=== PATIENT | female | born 1985 | race African-American/Black ===

== ENCOUNTER 2016-07-18 09:55 | Emergency (ER) | payer OTHER, SELFPAY ==
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
== END 2016-07-18 11:57 | disposition home or self-care (01) ==
LOC: MADERS 09:55
DX: S16.1XXA Strain of muscle, fascia and tendon at neck level, initial encounter (principal); V49.9XXA Car occupant (driver) (passenger) injured in unspecified traffic accident, initial encounter
CPT/HCPCS: 72040

== ENCOUNTER 2016-10-05 19:05 | Emergency (ER) | payer SELFPAY ==
[2016-10-05 20:28] LABS: BHCG - Serum Negative (NEGATIVE); Hemoglobin 10.5 g/dL (12.0-16.0); Mean Corpuscular HGB CONC 30.7 g/dL (32.0-36.0); Mean Corpuscular Hemoglobin 25.4 pg (27.0-31.0); Mean Corpuscular Volume 82.8 fL (81.0-99.0); Mean Platelet Volume 9.2 fL (7.4-10.4); Platelet Count 326 thou/uL (130-400); Pregs Control Background? CLEAR/WHITE (CLR/WHITE); Pregs Control Bar Appear? YES (CONTROL BAR); RBC Distribution Width 15.8 % (11.5-14.5); Red Blood Cell (RBC) Count 4.13 mill/uL (4.20-5.40); White Blood Cell (WBC) Count 6.9 thou/uL (4.8-10.8)
[2016-10-05 20:29] LABS: #Basophils 0.2 thou/uL (0.0-0.2); #Eosinphils 0.4 thou/uL (0.0-0.7); #Lymphocytes 2.4 thou/uL (1.20-3.40); #Monocytes 0.6 thou/uL (0.11-0.59); #Neutrophils 3.4 thou/uL (1.40-6.50); %Basophils 2.4 % (0.0-1.0); %Eosinophils 5.5 % (0.0-10.0); %Lymphocytes 34.4 % (21.0-51.0); %Monocytes 8.1 % (0.0-10.0)
[2016-10-05 20:30] LABS: Anion Gap 15 mmol/L (10-20); BUN (Urea Nitrogen) 10 mg/dL (7.0-18.7); Calc. Creatinine Clearance 0 mL/min (70-130); Calcium 8.7 mg/dL (7.8-10.44); Carbon Dioxide 19 mmol/L (22-29); Chloride 109 mmol/L (98-107); Estimated GFR-MDRD Greater than 90; Glucose 123 mg/dL (70-105); Potassium 3.4 mmol/L (3.5-5.1); Sodium 140 mmol/L (136-145)
== END 2016-10-05 20:45 | disposition home or self-care (01) ==
LOC: MADERS 19:05
DX: N94.6 Dysmenorrhea, unspecified (principal)
CPT/HCPCS: 36415; 80048; 84703; 85025; 99284

== ENCOUNTER 2017-09-14 16:03 | Emergency (ER) | payer OTHER, SELFPAY ==
[2017-09-14 16:54] LABS: Pregnancy Test - Urine (BHCG) Negative (Negative)
[2017-09-14 16:55] LABS: Pregu Control Background? CLEAR/WHITE (CLR/WHITE); Pregu Control Bar Appear? YES (CONTROL BAR)
[2017-09-14 17:05] LABS: Bilirubin Negative (Negative); Blood, Urine Large (Negative); Clarity Cloudy (Clear); Glucose, Urine (Dipstick) Negative (Negative); Leukocyte Negative (Negative); Nitrite Negative (Negative); Protein, Urine (Dipstick) 30 mg/dL (Neg-Trace)
[2017-09-14 17:07] LABS: #Basophils 0.1 thou/uL (0.0-0.2); #Eosinphils 0.5 thou/uL (0.0-0.7); #Lymphocytes 2.2 thou/uL (1.20-3.40); #Monocytes 0.4 thou/uL (0.11-0.59); #Neutrophils 2.5 thou/uL (1.40-6.50); %Basophils 2.3 % (0.0-1.0); %Lymphocytes 39.2 % (21.0-51.0); %Monocytes 6.8 % (0.0-10.0); %Neutrophils 43.7 % (42.0-75.0); Hemoglobin 13.3 g/dL (12.0-16.0); Mean Corpuscular HGB CONC 32.4 g/dL (32.0-36.0); Mean Corpuscular Volume 89.4 fl (81.0-99.0); Mean Platelet Volume 8.7 fL (7.4-10.4); Platelet Count 268 thou/uL (130-400); RBC Distribution Width 11.5 % (11.5-14.5); White Blood Cell (WBC) Count 5.7 thou/uL (4.8-10.8)
[2017-09-14 17:09] LABS: Bacteria/HPF 2+ HPF (None Seen); WBC/HPF 0-3 HPF (0-3)
[2017-09-14 17:10] LABS: Crystals/HPF 2+ AMORPH PHOS HPF (Negative)
[2017-09-14 17:22] LABS: Anion Gap 13 mmol/L (10-20); BUN (Urea Nitrogen) 13 mg/dL (7.0-18.7); Calc. Creatinine Clearance 0 mL/min (70-130); Calcium 9.4 mg/dL (7.8-10.44); Carbon Dioxide 23 mmol/L (22-29); Chloride 109 mmol/L (98-107); Estimated GFR-MDRD Greater than 90; Glucose 99 mg/dL (70-105); Potassium 3.7 mmol/L (3.5-5.1); Sodium 141 mmol/L (136-145)
[2017-09-14] MEDS ORDERED: Sulfameth/Trimethoprim DS 800-160mg TAB ONE (17:26)
== END 2017-09-14 17:40 | disposition home or self-care (01) ==
LOC: MADERS 16:03
DX: N93.9 Abnormal uterine and vaginal bleeding, unspecified (principal); N39.0 Urinary tract infection, site not specified
CPT/HCPCS: 36415; 80048; 81003; 81015; 81025; 85025; 99284

== ENCOUNTER 2017-09-29 22:41 | Emergency (ER) | payer OTHER | END 2017-09-30 01:34 | disposition left against medical advice (07) | LOC: MADERS 22:41 | DX: Z53.21 Procedure and treatment not carried out due to patient leaving prior to being seen by health care provider (principal) ==

== ENCOUNTER 2017-11-20 19:56 | Emergency (ER) | payer OTHER ==
[2017-11-20 20:14] LABS: Bilirubin Negative (Negative); Blood, Urine Trace (Negative); Clarity Clear (Clear); Glucose, Urine (Dipstick) Negative (Negative); Leukocyte Negative (Negative); Nitrite Negative (Negative); Protein, Urine (Dipstick) Negative (Neg-Trace); Urobilinogen 0.2 mg/dL (0.2-1.0)
[2017-11-20 20:16] LABS: Specific Gravity, Urine 1.024 (1.002-1.036)
[2017-11-20 20:17] LABS: Bacteria/HPF Rare-Few HPF (None Seen)
[2017-11-20 20:18] LABS: Pregnancy Test - Urine (BHCG) Negative (Negative); Pregu Control Background? CLEAR/WHITE (CLR/WHITE); Pregu Control Bar Appear? YES (CONTROL BAR); Specific Gravity 1.024 (1.002-1.036)
[2017-11-20] MEDS ORDERED: traMADol HCl 50 MG TAB ONE (20:24)
[2017-11-20] MEDS ORDERED: predniSONE 20 MG TAB ONE (20:25)
== END 2017-11-20 20:32 | disposition home or self-care (01) ==
LOC: MADERS 19:56
DX: M54.5 Low back pain (principal)
CPT/HCPCS: 81003; 81015; 81025; 99283; J7506

== ENCOUNTER 2017-12-04 07:59 | Emergency (ER) | payer OTHER ==
[2017-12-04 08:20] LABS: Bilirubin Negative (Negative); Blood, Urine Large (Negative); Clarity Slightly Cloudy (Clear); Glucose, Urine (Dipstick) Negative (Negative); Leukocyte Large (Negative); Nitrite Positive (Negative); Protein, Urine (Dipstick) 100 mg/dL (Neg-Trace)
[2017-12-04 08:23] LABS: Bacteria/HPF 1+ HPF (None Seen)
[2017-12-04 08:26] LABS: Pregnancy Test - Urine (BHCG) Negative (Negative); Pregu Control Background? CLEAR/WHITE (CLR/WHITE); Pregu Control Bar Appear? YES (CONTROL BAR)
[2017-12-04] MEDS ORDERED: Acetaminophen 500 MG TAB ONE (08:27)
== END 2017-12-04 08:50 | disposition home or self-care (01) ==
LOC: MADERS 07:59
DX: N10 Acute pyelonephritis (principal)
CPT/HCPCS: 81003; 81015; 81025; 87077; 87086; 87186; 99283

== ENCOUNTER 2017-12-23 12:34 | Outpatient (CLI) | payer OTHER ==
--- NOTE | 2017-12-23 14:34 | RAD ---
THREE VIEWS LUMBAR SPINE: 12/23/17 HISTORY: Mid back pain. FINDINGS: There are five nonribbearing lumbar type vertebral bodies. The vertebral body heights and interverteb ral disc spaces are within normal limits. Phleboliths overlie the pelvis. IMPRESSION: No fracture or subluxation involving the lumbar spine. POS: [facility]
--- NOTE | 2017-12-23 14:38 | RAD ---
TWO VIEWS OF THE THORACIC SPINE: 12/23/17 HISTORY: Mid back pain. FINDINGS: There is mild right convex curvature of the thoracic spine. Vertebral body heights and intervertebral disc spaces are within normal limits. The upper thoracic spine is partially obscured on the lateral projection due to overlying structures. There is otherwise no fracture or subluxation involving the t horacic spine. IMPRESSION: Mild right convex curvature of the thoracic spine. There is otherwise no definite acute osseous abnor mality visualized. POS: [facility]
== END 2017-12-23 12:35 | disposition home or self-care (01) ==
LOC: MADRAD 12:34
PROVIDERS: ATTEND Family Medicine
DX: M54.6 Pain in thoracic spine (principal)
CPT/HCPCS: 72070; 72100

== ENCOUNTER 2018-01-21 09:50 | Emergency (ER) | payer OTHER ==
[2018-01-21 11:11] LABS: Bilirubin Negative (Negative); Blood, Urine Negative (Negative); Clarity Cloudy (Clear); Glucose, Urine (Dipstick) Negative (Negative); Leukocyte Negative (Negative); Nitrite Negative (Negative); Protein, Urine (Dipstick) Negative (Neg-Trace); pH, Urine 7.5 (5.0-9.0)
[2018-01-21 11:16] LABS: Pregnancy Test - Urine (BHCG) Negative (Negative); Pregu Control Background? CLEAR/WHITE (CLR/WHITE); Pregu Control Bar Appear? YES (CONTROL BAR)
[2018-01-21 11:59] LABS: #Basophils 0.1 thou/uL (0.0-0.2); #Eosinphils 0.4 thou/uL (0.0-0.7); #Lymphocytes 2.2 thou/uL (1.20-3.40); #Monocytes 0.6 thou/uL (0.11-0.59); #Neutrophils 3.2 thou/uL (1.40-6.50); %Basophils 1.8 % (0.0-1.0); %Eosinophils 5.6 % (0.0-10.0); %Lymphocytes 33.9 % (21.0-51.0); %Monocytes 8.9 % (0.0-10.0); %Neutrophils 49.8 % (42.0-75.0); Hemoglobin 13.5 g/dL (12.0-16.0); Mean Corpuscular HGB CONC 32.7 g/dL (32.0-36.0); Mean Corpuscular Hemoglobin 29.9 pg (27.0-31.0); Mean Corpuscular Volume 91.6 fL (78.0-98.0); Mean Platelet Volume 9.1 fL (7.4-10.4); Platelet Count 283 thou/uL (130-400); RBC Distribution Width 11.5 % (11.5-14.5); White Blood Cell (WBC) Count 6.4 thou/uL (4.8-10.8)
[2018-01-21 12:13] LABS: ALT (SGPT) 7 U/L (8-55); AST (SGOT) 11 U/L (5-34); Albumin 4.3 g/dL (3.5-5.0); Alkaline Phosphatase 69 U/L (40-150); Anion Gap 11 mmol/L (10-20); BUN (Urea Nitrogen) 8 mg/dL (7.0-18.7); Bilirubin, Total 0.6 mg/dL (0.2-1.2); Calc. Creatinine Clearance 0 mL/min (70-130); Calcium 9.1 mg/dL (7.8-10.44); Carbon Dioxide 25 mmol/L (22-29); Chloride 106 mmol/L (98-107); Estimated GFR-MDRD Greater than 90; Globulin 3.5 g/dL (2.4-3.5); Glucose 94 mg/dL (70-105); Lipase 18 U/L (8-78); Potassium 3.9 mmol/L (3.5-5.1); Protein, Total 7.8 g/dL (6.0-8.3); Sodium 138 mmol/L (136-145)
[2018-01-21] MEDS ORDERED: cefTRIAXone\\ROCEPHIN 250 MG VIAL ONE (12:51)
[2018-01-24 19:24] LABS: Chlamydia by PCR Not Detected (NotDetected); GC by PCR Not Detected (NotDetected)
== END 2018-01-21 13:15 | disposition home or self-care (01) ==
LOC: MADERS 09:50
DX: N73.9 Female pelvic inflammatory disease, unspecified (principal)
CPT/HCPCS: 36415; 80053; 81003; 81025; 83690; 85025; 87480; 87491; 87510; 87591; 87660; 96372; J0696; J2001

== ENCOUNTER 2018-06-21 19:26 | Emergency (ER) | payer OTHER | END 2018-06-21 19:45 | disposition home or self-care (01) | LOC: MADERS 19:26 | DX: J20.9 Acute bronchitis, unspecified (principal) | CPT/HCPCS: 99281 ==

== ENCOUNTER 2018-07-02 09:16 | Emergency (ER) | payer MEDICAID, OTHER | END 2018-07-02 10:20 | disposition home or self-care (01) | LOC: MADERS 09:16 | DX: J02.9 Acute pharyngitis, unspecified (principal); F17.210 Nicotine dependence, cigarettes, uncomplicated | CPT/HCPCS: 99281 ==

== ENCOUNTER 2018-08-04 17:57 | Emergency (ER) | payer MEDICAID, OTHER ==
[2018-08-04] MEDS ORDERED: Ibuprofen 800 MG TAB ONE (18:13)
[2018-08-04 18:22] LABS: Pregnancy Test - Urine (BHCG) Negative (Negative); Pregu Control Background? CLEAR/WHITE (CLR/WHITE); Pregu Control Bar Appear? YES (CONTROL BAR); Specific Gravity 1.022 (1.002-1.036)
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
== END 2018-08-04 19:10 | disposition home or self-care (01) ==
LOC: MADERS 17:57
DX: S20.211A Contusion of right front wall of thorax, initial encounter (principal); S20.212A Contusion of left front wall of thorax, initial encounter; F17.210 Nicotine dependence, cigarettes, uncomplicated; Y04.0XXA Assault by unarmed brawl or fight, initial encounter
CPT/HCPCS: 81025

== ENCOUNTER 2018-09-07 08:43 | Emergency (ER) | payer MEDICAID, OTHER ==
[2018-09-07] MEDS ORDERED: Bacitracin Zinc 1 Packet ONE (09:05)
[2018-09-07] MEDS ORDERED: Adacel (T-DAP) 0.5 ML SYRINGE ONE (09:05)
== END 2018-09-07 09:30 | disposition home or self-care (01) ==
LOC: MADERS 08:43
DX: S61.051A Open bite of right thumb without damage to nail, initial encounter (principal); S09.90XA Unspecified injury of head, initial encounter; F17.210 Nicotine dependence, cigarettes, uncomplicated; Y04.1XXA Assault by human bite, initial encounter
CPT/HCPCS: 90471; 90715

== ENCOUNTER 2018-09-27 00:27 | Emergency (ER) | payer OTHER | END 2018-09-27 00:51 | disposition home or self-care (01) | LOC: MADERS 00:27 | DX: S01.81XA Laceration without foreign body of other part of head, initial encounter (principal); F17.210 Nicotine dependence, cigarettes, uncomplicated; W22.01XA Walked into wall, initial encounter | CPT/HCPCS: 12011 ==

== ENCOUNTER 2018-09-28 23:18 | Emergency (ER) | payer OTHER ==
[2018-09-28] MEDS ORDERED: Acetaminophen 325 MG TAB ONE (23:43)
[2018-09-28 23:48] LABS: Pregnancy Test - Urine (BHCG) Negative (Negative); Pregu Control Background? CLEAR/WHITE (CLR/WHITE); Pregu Control Bar Appear? YES (CONTROL BAR); Specific Gravity 1.017 (1.002-1.036)
== END 2018-09-29 00:10 | disposition home or self-care (01) ==
LOC: MADERS 23:18
DX: S00.83XA Contusion of other part of head, initial encounter (principal); S50.02XA Contusion of left elbow, initial encounter; S60.413A Abrasion of left middle finger, initial encounter; Y04.0XXA Assault by unarmed brawl or fight, initial encounter
CPT/HCPCS: 81025; 99284

== ENCOUNTER 2018-10-09 18:17 | Emergency (ER) | payer OTHER ==
[2018-10-09] MEDS ORDERED: Ketorolac Tromethamine 60 MG/2 ML VIAL ONE (19:10)
--- NOTE | 2018-10-09 19:58 | RAD ---
Exam: Chest one view Right ribs 2 views FINDINGS: Chest one view: Normal cardiac silhouette. Pulmonary vessels and hilum are normal. Costophr enic angles are clear. No masses or consolidation. No pneumothorax. Right RIBS 2 views: Limited evaluation due to motion and overlying osseous structures. There appears be an old right lateral 6 rib fracture. Acute mildly displaced right lateral fifth rib fracture. IMPRESSION: 1. No acute cardiopulmonary process 2. Acute right fifth rib fracture
== END 2018-10-09 20:45 | disposition home or self-care (01) ==
LOC: MADERS 18:17
DX: S22.31XA Fracture of one rib, right side, initial encounter for closed fracture (principal); S00.83XA Contusion of other part of head, initial encounter; S60.412A Abrasion of right middle finger, initial encounter; Y04.8XXA Assault by other bodily force, initial encounter
CPT/HCPCS: 96372; J1885

== ENCOUNTER 2018-11-29 22:43 | Emergency (ER) | payer OTHER ==
[2018-11-29] MEDS ORDERED: Tobramycin Sulfate 0.3% Ophth Susp 5 ml Bottle ONE (23:26)
== END 2018-11-29 23:45 | disposition home or self-care (01) ==
LOC: MADERS 22:43
DX: S05.01XA Injury of conjunctiva and corneal abrasion without foreign body, right eye, initial encounter (principal); I10 Essential (primary) hypertension; Z79.899 Other long term (current) drug therapy; Y04.0XXA Assault by unarmed brawl or fight, initial encounter
CPT/HCPCS: 99283

== ENCOUNTER 2019-01-18 03:02 | Emergency (ER) | payer OTHER ==
[2019-01-18] MEDS ORDERED: Ibuprofen 800 MG TAB ONE (03:24)
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
== END 2019-01-18 03:52 | disposition home or self-care (01) ==
LOC: MADERS 03:02
DX: S29.011A Strain of muscle and tendon of front wall of thorax, initial encounter (principal); I10 Essential (primary) hypertension; Z79.899 Other long term (current) drug therapy; W51.XXXA Accidental striking against or bumped into by another person, initial encounter; Y93.72 Activity, wrestling

== ENCOUNTER 2019-03-19 14:08 | Emergency (ER) | payer OTHER ==
[2019-03-19 14:39] LABS: Bilirubin Negative (Negative); Blood, Urine Negative (Negative); Glucose, Urine (Dipstick) Negative (Negative); Leukocyte Negative (Negative); Nitrite Negative (Negative); Pregnancy Test - Urine (BHCG) Negative (Negative); Protein, Urine (Dipstick) Negative (Neg-Trace)
[2019-03-19 14:40] LABS: Clarity Hazy (Clear); Pregu Control Background? CLEAR/WHITE (CLR/WHITE); Pregu Control Bar Appear? YES (CONTROL BAR); Specific Gravity 1.025 (1.002-1.036)
[2019-03-19 15:36] LABS: #Basophils 0.1 thou/uL (0.0-0.2); #Eosinphils 0.3 thou/uL (0.0-0.7); #Lymphocytes 2.2 thou/uL (1.20-3.40); #Monocytes 0.5 thou/uL (0.11-0.59); #Neutrophils 4.2 thou/uL (1.40-6.50); %Basophils 1.6 % (0.0-1.0); %Eosinophils 4.2 % (0.0-10.0); %Lymphocytes 30.5 % (21.0-51.0); %Monocytes 6.9 % (0.0-10.0); %Neutrophils 56.8 % (42.0-75.0); Anisocytosis SLIGHT = 6-15 cells (100X) (0-5/hpf); Hemoglobin 10.8 g/dL (12.0-16.0); Hypochromia SLIGHT = 6-15 cells (100X) (0-5/hpf); MDiff Complete? YES; Mean Corpuscular Hemoglobin 27.3 pg (27.0-31.0); Mean Corpuscular Volume 91.2 fL (78.0-98.0); Mean Platelet Volume 8.6 fL (7.4-10.4); Platelet Count 336 thou/uL (130-400); Platelet Morphology Comment Appears Adequate; RBC Distribution Width 13.8 % (11.5-14.5); Red Blood Cell (RBC) Count 3.96 mill/uL (4.20-5.40); White Blood Cell (WBC) Count 7.3 thou/uL (4.8-10.8)
--- NOTE | 2019-03-19 15:38 | RAD ---
XR Hip Rt 2-3 View HISTORY: Right hip pain FINDINGS: No fracture or dislocation is identified. No significant arthritic changes are seen.
--- NOTE | 2019-03-19 15:40 | RAD ---
XR Pelvis AP STANDARD HISTORY: Right hip pain FINDINGS: No fracture or dislocation is identified.
[2019-03-19 15:43] LABS: ALT (SGPT) 9 U/L (8-55); AST (SGOT) 12 U/L (5-34); Albumin 4.2 g/dL (3.5-5.0); Alkaline Phosphatase 83 U/L (40-110); Anion Gap 13 mmol/L (10-20); BUN (Urea Nitrogen) 13 mg/dL (7.0-18.7); Bilirubin, Total 0.2 mg/dL (0.2-1.2); Calc. Creatinine Clearance 0 mL/min (70-130); Calcium 9.1 mg/dL (7.8-10.44); Carbon Dioxide 24 mmol/L (22-29); Chloride 106 mmol/L (98-107); Estimated GFR-MDRD Greater than 90; Globulin 3.1 g/dL (2.4-3.5); Glucose 99 mg/dL (70-105); Lipase 86 U/L (8-78); Protein, Total 7.3 g/dL (6.0-8.3); Sodium 139 mmol/L (136-145)
== END 2019-03-19 16:31 | disposition home or self-care (01) ==
LOC: MADERS 14:08
DX: M54.5 Low back pain (principal); M25.551 Pain in right hip; I10 Essential (primary) hypertension; Z79.899 Other long term (current) drug therapy
CPT/HCPCS: 36415; 72170; 80053; 81003; 81025; 83605; 83690; 85025

== ENCOUNTER 2019-04-01 22:29 | Emergency (ER) | payer OTHER ==
[2019-04-01] MEDS ORDERED: Ondansetron ODT 4 MG TAB ONE (23:03)
[2019-04-01] MEDS ORDERED: Oseltamivir 75 MG CAP ONE (23:03)
== END 2019-04-01 23:15 | disposition home or self-care (01) ==
LOC: MADERS 22:29
DX: J11.1 Influenza due to unidentified influenza virus with other respiratory manifestations (principal); R11.10 Vomiting, unspecified; I10 Essential (primary) hypertension; Z79.899 Other long term (current) drug therapy
CPT/HCPCS: 99283; Q0162

== ENCOUNTER 2019-05-21 14:20 | Emergency (ER) | payer OTHER | END 2019-05-21 14:48 | disposition home or self-care (01) | LOC: MADERS 14:20 | DX: E86.0 Dehydration (principal); I10 Essential (primary) hypertension | CPT/HCPCS: 99281 ==

== ENCOUNTER 2019-06-16 20:28 | Emergency (ER) | payer OTHER ==
[2019-06-16] MEDS ORDERED: Ondansetron ODT 4 MG TAB ONE (20:54)
[2019-06-16] MEDS ORDERED: Ibuprofen 800 MG TAB ONE (20:54)
== END 2019-06-16 21:26 | disposition home or self-care (01) ==
LOC: MADERS 20:28
DX: G43.909 Migraine, unspecified, not intractable, without status migrainosus (principal); I10 Essential (primary) hypertension
CPT/HCPCS: 99283; Q0162

== ENCOUNTER 2019-10-10 12:54 | Emergency (ER) | payer OTHER | END 2019-10-10 14:00 | disposition home or self-care (01) | LOC: MADERS 12:54 | DX: S41.152A Open bite of left upper arm, initial encounter (principal); S01.151A Open bite of right eyelid and periocular area, initial encounter; I10 Essential (primary) hypertension; Y04.1XXA Assault by human bite, initial encounter | CPT/HCPCS: 99283 ==

== ENCOUNTER 2019-11-06 22:01 | Emergency (ER) | payer OTHER ==
[2019-11-06 23:09] LABS: #Basophils 0.1 thou/uL (0.0-0.2); #Eosinphils 0.3 thou/uL (0.0-0.7); #Lymphocytes 2.4 thou/uL (1.20-3.40); #Monocytes 0.6 thou/uL (0.11-0.59); #Neutrophils 4.7 thou/uL (1.40-6.50); %Basophils 1.6 % (0.0-1.0); %Lymphocytes 29.4 % (21.0-51.0); %Monocytes 7.2 % (0.0-10.0); %Neutrophils 57.9 % (42.0-75.0); Hemoglobin 12.1 g/dL (12.0-16.0); Mean Corpuscular HGB CONC 30.7 g/dL (32.0-36.0); Mean Corpuscular Volume 91.1 fL (78.0-98.0); Mean Platelet Volume 8.7 fL (7.4-10.4); Platelet Count 301 thou/uL (130-400); RBC Distribution Width 12.9 % (11.5-14.5); Red Blood Cell (RBC) Count 4.34 mill/uL (4.20-5.40); White Blood Cell (WBC) Count 8.2 thou/uL (4.8-10.8)
[2019-11-09 20:59] LABS: Chlamydia by PCR Not Detected (NotDetected); GC by PCR Not Detected (NotDetected)
== END 2019-11-06 23:36 | disposition home or self-care (01) ==
LOC: MADERS 22:01
DX: N92.6 Irregular menstruation, unspecified (principal); G40.909 Epilepsy, unspecified, not intractable, without status epilepticus; I10 Essential (primary) hypertension
CPT/HCPCS: 36415; 84702; 85025; 86900; 86901; 87480; 87491; 87510; 87591; 87660; 99284

== ENCOUNTER 2020-04-21 08:30 | Emergency (ER) | payer OTHER ==
--- NOTE | 2020-04-21 09:09 | RAD ---
EXAM: Two views chest PROVIDED CLINICAL HISTORY: Covid symptoms. Productive cough. COMPARISON: 01/18/2019 FINDINGS: Cardiac silhouette is at the upper limits of normal in size. Pulmonary vasculature is within normal l imits. The lungs are clear. The osseous structures have a normal appearance. IMPRESSION: 1. No acute cardiopulmonary process. Chest radiograph exhibits low sensitivity for evaluation of subt le groundglass opacities which can be seen with Covid pneumonia.
[2020-04-21 22:18] LABS: SARS-CoV-2 PCR by NAA DETECTED (NotDetected)
== END 2020-04-21 09:30 | disposition home or self-care (01) ==
LOC: MADERS 08:30
DX: U07.1 COVID-19 (principal); I10 Essential (primary) hypertension; Z79.899 Other long term (current) drug therapy
CPT/HCPCS: 71046; 87635; U0003; U0005

== ENCOUNTER 2020-07-14 12:15 | Outpatient (CLI) | payer OTHER ==
[2020-07-16 20:12] LABS: Chlamydia by PCR Not Detected (NotDetected); GC by PCR Not Detected (NotDetected)
== END 2020-07-14 12:16 | disposition home or self-care (01) ==
LOC: MADLABBHPM 12:15
PROVIDERS: ATTEND Family Medicine
DX: N89.8 Other specified noninflammatory disorders of vagina (principal); R30.0 Dysuria
CPT/HCPCS: 87086; 87480; 87491; 87510; 87591; 87660

== ENCOUNTER 2020-12-24 09:44 | Emergency (ER) | payer OTHER ==
[2020-12-24 10:28] LABS: Pregnancy Test - Urine (BHCG) Negative (Negative); Pregu Control Bar Appear? YES (CONTROL BAR); Specific Gravity 1.025 (1.002-1.036)
[2020-12-24 10:29] LABS: Pregu Control Background? CLEAR/WHITE (CLR/WHITE)
[2020-12-24 10:38] LABS: Bilirubin Small (Negative); Blood, Urine Large (Negative); Clarity Cloudy (Clear); Glucose, Urine (Dipstick) Negative (Negative); Ketone, Urine Trace mg/dL (Negative); Leukocyte Small (Negative); Nitrite Positive (Negative); Protein, Urine (Dipstick) > or equal to 300 mg/dL (Neg-Trace)
[2020-12-24 10:42] LABS: Bacteria/HPF 1+ HPF (None Seen); RBC/HPF Greater than 50 HPF (0-3)
[2020-12-24] MEDS ORDERED: Lidocaine 1% 20 ML MDV ONE (10:46)
[2020-12-24] MEDS ORDERED: Phenazopyridine HCl 97.5 MG TABLET ONE (10:46)
[2020-12-24] MEDS ORDERED: cefTRIAXone\\ROCEPHIN 1 GM VIAL ONE (10:46)
== END 2020-12-24 11:06 | disposition home or self-care (01) ==
LOC: MADERS 09:44
DX: N30.01 Acute cystitis with hematuria (principal); I10 Essential (primary) hypertension
CPT/HCPCS: 81003; 81015; 81025; 87077; 87086; 87186; 96372; 99283; J0696

== ENCOUNTER 2021-02-11 07:07 | Emergency (ER) | payer OTHER ==
[2021-02-11 07:29] LABS: Pregnancy Test - Urine (BHCG) Negative (Negative); Pregu Control Background? CLEAR/WHITE (CLR/WHITE); Pregu Control Bar Appear? YES (CONTROL BAR); Specific Gravity 1.015 (1.002-1.036)
[2021-02-11 07:35] LABS: Bilirubin Small (Negative); Blood, Urine Small (Negative); Clarity Turbid (Clear); Glucose, Urine (Dipstick) 100 mg/dL (Negative); Ketone, Urine Trace mg/dL (Negative); Leukocyte Large (Negative); Nitrite Positive (Negative); Protein, Urine (Dipstick) > or equal to 300 mg/dL (Neg-Trace); Specific Gravity, Urine 1.015 (1.005-1.030)
[2021-02-11 07:36] LABS: Bacteria/HPF 1+ HPF (None Seen); WBC/HPF Greater than 50 HPF (0-3)
[2021-02-11] MEDS ORDERED: cefTRIAXone\\ROCEPHIN 1 GM VIAL ONE (07:59)
[2021-02-11] MEDS ORDERED: Water For Inject, Bacteriostat 30 ML ONE (07:59)
== END 2021-02-11 08:20 | disposition home or self-care (01) ==
LOC: MADERS 07:07
DX: N39.0 Urinary tract infection, site not specified (principal); E11.9 Type 2 diabetes mellitus without complications; I10 Essential (primary) hypertension
CPT/HCPCS: 81003; 81015; 81025; 87077; 87086; 87186; 96372; 99283; J0696

== ENCOUNTER 2021-03-27 07:33 | Emergency (ER) | payer OTHER ==
[2021-03-27] MEDS ORDERED: Lidocaine 1% (PF) 30 ML VIAL ONE (07:55)
[2021-03-27] MEDS ORDERED: Mupirocin 2% Ointment 22 GM Tube ONE (07:55)
== END 2021-03-27 08:20 | disposition home or self-care (01) ==
LOC: MADERS 07:33
DX: J34.0 Abscess, furuncle and carbuncle of nose (principal); E11.9 Type 2 diabetes mellitus without complications; I10 Essential (primary) hypertension
CPT/HCPCS: 10060; 87070; 87077; 87186; 87205; J2001

== ENCOUNTER 2021-06-08 18:32 | Emergency (ER) | payer OTHER | END 2021-06-08 19:55 | disposition home or self-care (01) | LOC: MADERS 18:32 | DX: S67.01XA Crushing injury of right thumb, initial encounter (principal); E11.9 Type 2 diabetes mellitus without complications; I10 Essential (primary) hypertension; W23.0XXA Caught, crushed, jammed, or pinched between moving objects, initial encounter ==

== ENCOUNTER 2021-12-18 09:48 | Emergency (ER) | payer OTHER, MEDICAID | END 2021-12-18 11:10 | disposition home or self-care (01) | LOC: MADERS 09:48 | DX: S43.401A Unspecified sprain of right shoulder joint, initial encounter (principal); I10 Essential (primary) hypertension; E11.9 Type 2 diabetes mellitus without complications; X50.0XXA Overexertion from strenuous movement or load, initial encounter; Y93.F2 Activity, caregiving, lifting; Y92.69 Other specified industrial and construction area as the place of occurrence of the external cause; Z79.899 Other long term (current) drug therapy ==

== ENCOUNTER 2022-06-22 15:21 | Emergency (ER) | payer MEDICAID, OTHER, SELFPAY ==
[2022-06-22] MEDS ORDERED: Ibuprofen 800 MG TAB ONE (15:55)
== END 2022-06-22 16:30 | disposition home or self-care (01) ==
LOC: MADERS 15:21
DX: S60.221A Contusion of right hand, initial encounter (principal); E11.9 Type 2 diabetes mellitus without complications; I10 Essential (primary) hypertension; Y04.8XXA Assault by other bodily force, initial encounter